=== PATIENT | female | born 2000 | race Caucasian/White ===

== ENCOUNTER 2025-07-10 13:02 | Outpatient (AMB) | payer BC, SELFPAY ==
[2025-07-10 13:14] VITALS: BP 122/54; PULSE 95; RESP 12; TEMP 37.2; O2SAT 99; BMI 18.4
--- NOTE | 2025-07-10 13:14 | MHC.PC.OV ---
Vital Signs 07/10/25 13:14 Height 5 ft 1.69 in Weight 99 lb 8 oz BMI 18.4 BP 122/54 L Blood Pressure Location Lt brachial Position Sitting Respiration 12 Pulse 95 Pulse Source Pulse Oximeter Temp 98.9 F Temp Source Oral Pulse Oximetry (%) 99 Oxygen Delivery Method Room Air Intake Visit Reasons: ADMINISTRATION INTERN-Annual pe Intake Note: New patient visit Airset Molder Required: No Accompanied by: Mother Allergies No Known Allergies Allergy (Verified 07/10/25 13:17) Tobacco use date assessed: 07/10/25 Dental Screening Dental Screen Date: 07/10/25 Did you have a dental visit in the last 12 months?: Yes Did you have a dental problem in the last 6 months where you did not have access to dental care?: No Was dental information given to patient?: Patient has dentist HPI HPI Comments History of Present Illness Details 24 year old female with a past medical history of ASD, generalized anxiety disorder, intermittent asthma presenting to on license of [facility] care. Transfer from [facility] Allergy/Immunology: Following with A&I, Dr Lopez. Has epi pen. Uses claritin, flonase, albuterol. Peanut allergy. Difficulty swallowing pills -due to anxiety [employer] war qb-[id number]-vmgsma anxiety has to go to the bathroom, gets back pain, then dissipates once calm Difficulty gaining weight. Feels like her appetite is great and she eats a lot. Dentist q 6 months Not seeing family partner-she is sexually active and would like to see family partner to discuss control Td due 12/02/2023 Received HPV vaccines ROS see HPI PHYSICAL EXAM: GENERAL: Alert and oriented x 3. NAD EYES: EOMI. Anicteric. HENT: Moist mucous membranes. No scleral icterus. No cervical lymphadenopathy. LUNGS: Clear to auscultation bilaterally. CARDIOVASCULAR: Regular rate and rhythm. No murmur. No JVD. ABDOMEN: Soft, non-tender +bs EXTREMITIES: No edema. Non-tender. SKIN: No rashes or lesions. Warm. NEUROLOGIC: No focal neurological deficits. CN II-XII grossly intact PSYCHIATRIC: Cooperative. Appropriate mood and affect [facility] Family History Sister Anxiety Mother Depression Other FH: mental illness Social History Housing: House Patient Tobacco Use Status: Never used Tobacco e-Cigarette/Vaping Use: Never Used Second Hand Smoke Exposure: No service: No Current occupational status: employed Current occupation: [employer] Current occupational exposures/hazards: No Cognitive needs: No Hearing needs: No Vision needs: No Questionnaire AUDIT C Alcohol Use Questionnaire (AUDIT-C) 1. How often do you have a drink containing alcohol?: Monthly or less 2. How many drinks containing alcohol do you have on a typical day when you are drinking?: 1 or 2 3. How often do you have six or more drinks on one occasion?: Never Total Score: 1 Physical exam (Primary Care) BMI result Body Mass Index 18.4 Tobacco/Smoking Status: Tobacco use Status Tobacco use date assessed 07/10/25 07/10/25 13:22 Patient Tobacco Use Status Never used Tobacco 07/10/25 13:22 e-Cigarette/Vaping Use Never Used 07/10/25 13:22 Coding Level of Care Code New Pt Prev Care 18-39yr([id number] Diagnoses Physical exam Z00.00 Generalized anxiety disorder F41.1 Dysuria R30.0 Autism spectrum disorder F84.0 Assessment & Plan Assessment & Plan (1) Physical exam: Code(s): Z00.00 - Encounter for general adult medical examination without abnormal findings (2) Generalized anxiety disorder: Code(s): F41.1 - Generalized anxiety disorder Category: Medical (3) Dysuria: Code(s): R30.0 - Dysuria Category: Medical (4) Autism spectrum disorder: Code(s): F84.0 - Autistic disorder Category: Medical Plan 24 year old female to establish care Past medical, surgical, social reviewed Dysuria-urine ordered preventive measures for age discussed Refer to tinsmith helper. She wants non pill BC Orders: Orders Comprehensive Met. Panel Today F41.1 - Generalized anxiety disorder, F84.0 - Autistic disorder, Z13.0 - Encounter for screening for diseases of the blood and blood-forming organs and certain disorders involving the immune mechanism, Z13.220 - Encounter for screening for lipoid disorders, Z13.228 - Encounter for screening for other metabolic disorders Lipid Panel Today F41.1 - Generalized anxiety disorder, F84.0 - Autistic disorder, Z13.0 - Encounter for screening for diseases of the blood and blood-forming organs and certain disorders involving the immune mechanism, Z13.220 - Encounter for screening for lipoid disorders, Z13.228 - Encounter for screening for other metabolic disorders TSH reflex Free T4 Today F41.1 - Generalized anxiety disorder, F84.0 - Autistic disorder, Z13.0 - Encounter for screening for diseases of the blood and blood-forming organs and certain disorders involving the immune mechanism, Z13.220 - Encounter for screening for lipoid disorders, Z13.228 - Encounter for screening for other metabolic disorders Urine Culture Today R30.0 - Dysuria Complete Blood Count Auto Diff Today F41.1 - Generalized anxiety disorder, F84.0 - Autistic disorder, Z13.0 - Encounter for screening for diseases of the blood and blood-forming organs and certain disorders involving the immune mechanism, Z13.220 - Encounter for screening for lipoid disorders, Z13.228 - Encounter for screening for other metabolic disorders UA and rflx microscopic Today R30.0 - Dysuria CT NG by PCR Urine Today R30.0 - Dysuria Referrals Nutrition/Dietitian Referral R63.6 - Underweight TAFE LECTURER Referral Z12.4 - Encounter for screening for malignant neoplasm of cervix, Z30.09 - Encounter for other general counseling and advice on contraception Medications: New epinephrine for 2 doses 0.3 mg (0.3 mL) IM Q15M PRN 2 ea 3RF anaphylaxis albuterol sulfate 90 mcg/actuation (Ventolin HFA) 2 puffs inhalation Q6H PRN 8.5 grams 3RF shortness of breath or wheezing loratadine (Claritin) 10 mg PO DAILY 90 tabs 3RF propranolol 10 mg PO BID PRN 30 tabs 0RF anxiety
--- OUTSIDE RECORDS SUMMARY | 2025-07-10 15:10 | XMS_ITS | Encounter Summary ---
Author Organization [facility] Address [address] [place] [id number] Phone Care Team Providers Care Onion Topper Name Role Phone Elsy Calhoun MD Primary Care Provider [phone] Encounter Details Date Type Department Care Team ([facility] st Contact Info) Description 01/17/2018 Conversion Encounter [facility] [address] [place] [address] Social History Tobacco Use Types Packs/Day Years Used Date Smoking Tobacco: Never Assessed Comments Unknown Sex and Gender Information Value Date Recorded Sex Assigned at Female 02/05/2021 10:55 AM EDT Legal Sex Female 6:14 PM EDT Gender Identity Female 02/05/2021 10:55 AM EDT Sexual Orientation Straight 02/05/2021 10 :55 AM EDT documented as of this encounter Plan of Treatment Not on file documented as of this encounter Visit Diagnoses Not on filedocumented in this encounter Care Teams Onion Topper Relationship Specialty Start Date End Date Elsy Calhoun MD [address] [place] [address] PCP - General Pediatrics 05/03/20 06/14/24 documented as of this encounter
--- OUTSIDE RECORDS SUMMARY | 2025-07-10 15:10 | XMS_ITS | Encounter Summary ---
Author Organization [facility] Address [address] [place] [id number] Phone Care Team Providers Care Associate Store Manager Name Role Phone Elsy Calhoun MD Primary Care Provider [phone] Reason for Visit * Reason Comments Med Change Request Encounter Details Date Type Department Care Team ([facility] st Contact Info) Description 12/15/2022 [facility]ill [facility] [address] [address] Elena Henao NP [address] [place] [address] Peanut allergy Social History Tobacco Use Types Packs/Day Years Used Date Smoking Tobacco: Never Alcohol Use Standard Drinks/Week Comments Never 0 (1 standard drink = 0.6 oz pur e alcohol) Hunger/Food Answer Date Recorded In the last 12 months, did y ou or your family ever eat less than you felt you should because there wasn't enough money for food? No 02/05/2021 Stable Housing Answer Date Recorded Are you worried that in the next 2 months you may not have stable housing? No 02/05/2021 Transportation Concerns Answer Date Rec orded In the last 12 months, have you or your family ever had to go without healthcare because you didn't have a way to get there? No 02/05/2021 Hazards in Home Answer Date Recorded Think about the place you li ve. Do you have problems with any of the following? Pests (mice or roaches), mold, no/not working smoke detectors, water leaks, no window guards. No 2020 Financing Utilities Answer Date Recorde d In the last 12 months, has t he electric, gas, oil, or water company threatened to shut off your services in your home? No 02/05/2021 Safety at Home Answer Date Recorded Are you or your family worried about feeling saf e in your home? No 02/05/2021 Outside Support Answer Date Recorded Do you feel that you need mo re support from other people or programs to help you care for yourself or your family? No 02/05/2021 Understanding Health Concerns Answer Da te Recorded Do you need help understandi ng your or your child's healthcare needs (diagnosis, medications, plan, etc.)? No 02/05/2021 Financing Health Concerns Answer Date R ecorded In the last 12 months, was t here a time when your child needed to see a doctor or get medications or supplies but could not because of cost? No 02/05/2021 Missing School or Work Answer Date Isaias rded Did you or your child miss s chool or work because of a health problem that could have been avoided? No 02/05/2021 Comments No Sex and Gender Information Value Date Recorded Sex Assigned at Female 02/05/2021 10:55 AM EDT Legal Sex Female 6:14 PM EDT Gender Identity Female 02/05/2021 10:55 AM EDT Sexual Orientation Straight 02/05/2021 10 :55 AM EDT documented as of this encounter Miscellaneous Notes * Telephone Encounter - Elena Henao NP - 12/15/2022 11:50 AM EDT Rx sent for brand name * Telephone Encounter - Rajani Felix CMA - 12/15/2022 11:05 AM EDT Can you try sending as Epi-Pen MEET Thanks documented in this encounter Plan of Treatment Not on file documented as of this encounter Visit Diagnoses Diagnosis Peanut allergy documented in this encounter Care Teams Associate Store Manager Relationship Specialty Start Date End Date Elsy Calhoun MD [address] [place] [address] PCP - General Pediatrics 05/03/20 06/14/24 documented as of this encounter
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
== END 2025-07-10 13:59 | disposition home or self-care (01) ==
PROVIDERS: PCP Internal Medicine; Visit Provider Internal Medicine
DX: Z00.00 Encounter for general adult medical examination without abnormal findings (principal); F41.1 Generalized anxiety disorder; R30.0 Dysuria; F84.0 Autistic disorder

== ENCOUNTER 2025-07-31 11:41 | Outpatient (AMB) | payer BC, SELFPAY ==
--- NOTE | 2025-07-31 11:42 | MHC.OFFVIS ---
Vital Signs 07/31/25 11:49 Height 5 ft 1 in Weight 101 lb BMI 19.1 BP 106/68 Intake Visit Reasons: Control New pt Lithographic Platemaker: Lithographic Platemaker Present (not indicated) Accompanied by: Self / Same As Patient Allergies peanut Allergy (Verified 07/31/25 11:49) Anaphylaxis sesame oil Allergy (Verified 07/31/25 11:49) Hives tree nut Allergy (Verified 07/31/25 11:49) Anaphylaxis Medication List - Last Reconciled 07/31/25 by Fátima Santos CNM albuterol sulfate 90 mcg/actuation (Ventolin HFA) 2 puffs inhalation Q6H PRN drospirenone-ethinyl estradiol 3-0.02 mg (MARY (28)) 1 tab PO DAILY 3 months epinephrine 0.3 mg (0.3 mL) IM Q15M PRN epinephrine (EpiPen 2-James) 0.3 mg IM Q10M PRN fluticasone propionate 50 mcg/actuation (Flonase Allergy Relief) 2 sprays intranasal DAILY loratadine (Claritin) 10 mg PO DAILY propranolol 10 mg PO BID PRN HPI Comments Details: Tiffanie Vann presents for contraceptive counseling. Most recently she has condoms for contraception. she states she would like added protection and also something to help with her hormonal changes her premenstrual anxiety She describes menarche age 14 , q 28-30, lasting 4-7 days, cramps mild, flow is light on day one then heaviest on days 2-4, changing sanitary pad hourly, then it tapers. she describes mood and increased anxiety one week prior to menses Sexually active with partner of 11 mo. Options discussed included OCPs, Depo, IUD, Nuvaring, Ortho evra Patch, Nexplanon The risks, and side effects of the methods and the relative risk/benefit ratio were discussed ENTERPRISE APPLICATIONS MANAGER history none This patients past medical history has been considered in this counseling. She does not have any contraindications for combination bc. LAB RESULTS : urine hcg is NEGATIVE PLAN: orders After careful consideration , pt name Tiffanie has chosen BCP. she admits she does have difficulty swallowing pills, but is willing to try, consider ortho evra patch as next option She is informed this does not protect against STD and encourage condoms 100%. Hormonal method. She was instructed on the proper initiation of the methadone how to use, as well as the following side effects and potential complications, including headaches nausea irregular breakthrough bleeding for a few months, weight gain, risk of DVT, migraine headaches, cholelithiasis, hypertension. Pt will RTO in 3-4 mo for ANNUAL w/ PAP; for follow up med and BP check Jude Santos CNM. PFSH Medical History Asthma Surgical History H/O left knee surgery Family History Sister Anxiety Mother Depression Maternal Aunt Breast cancer Other FH: mental illness Social History Housing: House Patient Tobacco Use Status: Never used Tobacco e-Cigarette/Vaping Use: Never Used Second Hand Smoke Exposure: No service: No Current occupational status: employed Current occupation: [employer] Current occupational exposures/hazards: No Cognitive needs: No Hearing needs: No Vision needs: No Female Reproductive History Menstrual Age of Menarche: 13 Duration of menses: 3-5 days Date of last menstrual period: 07/07/25 control method: none Total pregnancies: 0 History of abnormal pap smear: No Review of Systems Const Reports no additional complaints Eyes Reports no additional complaints ENT Reports no additional complaints Card Reports no additional complaints Resp Reports no additional complaints GI Reports no additional complaints Reports as per [facility] Skin/Breast Reports system reviewed and no additional complaints, except as documented Physical Exam Vital Signs: Last Vital Signs BP 106/68 07/31/25 11:49 BMI result Body Mass Index 19.1 Const General: healthy appearing, no acute distress and alert Assessment & Plan Assessment & Plan (1) Encounter for counseling regarding contraception: Code(s): Z30. - Encounter for other general counseling and advice on contraception Plan Pt was unable to provide enough urine for gc/ct screen Orders: Orders AMB HCG Urine Test Today Z30. - Encounter for other general counseling and advice on contraception Medications: New drospirenone-ethinyl estradiol 3-0.02 mg (MARY (28)) 1 tab PO DAILY 90 tabs 0RF 3 months Coding Level of Care Code New Pt Level 3 (08521) Diagnoses Encounter for counseling regarding contraception Z30.09 Time Spent (min) 30
[2025-07-31 11:49] VITALS: BP 106/68; BMI 19.1
--- OUTSIDE RECORDS SUMMARY | 2025-07-31 15:24 | XMS_ITS | Encounter Summary ---
Author Organization [facility] Address [address] [place] [address] Phone Care Team Providers Care Hand Folder Name Role Phone Elsy Calhoun MD Primary Care Provider [phone] Encounter Details Date Type Department Care Team ([facility] st Contact Info) Description 01/17/2018 Conversion [facility]counter [facility] [address] [place] [address] Social History Tobacco Use Types Packs/Day Years [...] on filedocumented in this encounter Care Teams Hand Folder Relationship Specialty Start Date End Date Elsy Calhoun MD [address] [place] [address] PCP - General Pediatrics 05/03/20 06/14/24 documented as of this encounter
--- OUTSIDE RECORDS SUMMARY | 2025-07-31 15:24 | XMS_ITS | Encounter Summary ---
Author Organization [facility] Address [address] [place] [phone] Phone Care Team Providers Care Supervisor Microbiology Technologists Name Role Phone Elsy Calhoun MD Primary Care Provider [phone] Reason for Visit * Reason Comments Med Change Request Encounter Details Date Type Department Care Team ([facility] st Contact Info) Description 12/15/2022 [facility]ill [facility] [address] [address] Elena Henao NP [address] [place] [address] Peanut allergy Social History Tobacco Use Types [...] allergy documented in this encounter Care Teams Supervisor Microbiology Technologists Relationship Specialty Start Date End Date Elsy Calhoun MD [address] [place] [address] PCP - General Pediatrics 05/03/20 06/14/24 documented as of this encounter
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
== END 2025-07-31 14:43 | disposition home or self-care (01) ==
LOC: HO.HWSM 11:41
PROVIDERS: PCP Internal Medicine; Visit Provider Advanced Practice Midwife
DX: Z30.09 Encounter for other general counseling and advice on contraception (principal)
CPT/HCPCS: 99203